=== PATIENT | male | born 1990 | race Two or more races ===

== ENCOUNTER → 2025-04-19 | Emergency (ER) | payer MEDICAID, OTHER ==
[~2025-04-19] VITALS: Ht 182.9 cm; Wt 86.2 kg
[~2025-04-19] MED LIST: DICY10CA37 PO
[2025-04-19 12:09] LABS: CALCIUM, SERUM 8.7 mg/dL (8.5-10.1); CREATININE 1.2 mg/dL (0.6-1.3); SODIUM SERUM 143.0 mmol/L (136-145); UREA NITROGEN, BLOOD 13.0 mg/dL (7-18)
[2025-04-19 12:22] LABS: ASPARTATE AMINOTRANSFERASE 23.0 U/L (15-37); PLATELET COUNT (AUTO) 202 K/uL (150-450); RED BLOOD CELL COUNT(AUTO) 4.57 MIL/uL (4.5-6.0); RED CELL DISTRIBUTION WIDTH 13.1 % (11.5-15.0); TOTAL PROTEIN, SERUM 6.7 g/dL (6.4-8.2); WHITE BLOOD COUNT (AUTO) 5.8 K/uL (4.3-11.0)
[2025-04-19 13:18] LABS: APPEARANCE,URINE CLEAR (CLEAR); BLOOD, URINE NEGATIVE Ery/uL (NEGATIVE); LEUKOCYTE ESTERASE ,URINE NEGATIVE (NEGATIVE); NITRITE, URINE NEGATIVE (NEGATIVE); UGLUCOSE NEGATIVE (NEGATIVE)
[2025-04-19] MEDS: FENTANYL PF 100MCG/2ML AMPUL IV ONE (13:54)
[2025-04-19] MEDS: IV NS 0.9% 1,000 ML BAG IV ONE (13:54)
[2025-04-19] MEDS: ONDANSETRON HCL/PF 4 MG/2 ML VIAL IV ONE (13:54)
[2025-04-19 14:47] VITALS: BP 120/71; TEMP 98; O2SAT 98
== END | disposition home or self-care (01) ==
LOC: ER 11:44
DX: R10.84 Generalized abdominal pain (principal)
CPT/HCPCS: 99285; 74176; 96374; 96361; 96375; 85025; 80048; 83690; 80076; 81003; 36415; J3010; J2405; J7030